=== PATIENT | female | born 1940 ===

== ENCOUNTER 2021-12-02 22:25 | Observation (INO) ==
[2021-12-03] MEDS ORDERED: Melatonin 3 MG TABLET PO PRN (02:23)
[2021-12-03] MEDS ORDERED: Naloxone 0.4 MG/ML INJ IVP PRN (02:23)
[2021-12-03] MEDS ORDERED: *HR* HYDROcodone/Acet 5/325 mg TABLET PO PRN (02:23)
[2021-12-03] MEDS ORDERED: Acetaminophen 325 MG TABLET PO PRN (02:23)
[2021-12-03] MEDS: *HR* OxyCODONE Immed Rel 5 MG TABLET PO PRN ×3 (03:06→19:33)
[2021-12-03 05:14] LABS: INR 1.2; Prothrombin Time 13.1 Seconds (9.4-12.1)
[2021-12-03 05:15] LABS: Basophils % 0.4 %; Eosinophils # 0.1 K/mcL (0.0-0.6); Hemoglobin 11.8 g/dL (11.5-15.4); Immature Granulocytes % 0.2 % (0-4); Lymphocytes # 1.4 K/mcL (0.6-4.6); Lymphocytes % 14.9 %; Mean Corpuscular HGB Conc 32.8 g/dL (31.6-35.5); Mean Corpuscular Hemoglobin 31.9 pg (28.0-33.3); Mean Corpuscular Volume 97.3 fL (83.0-100.0); Mean Platelet Volume 9.3 fL (9.4-12.4); Monocytes # 0.9 K/mcL (0.0-1.3); Monocytes % 9.8 %; Neutrophils # 6.8 K/mcL (1.6-8.9); Platelet Count 204 K/mcL (140-400); Red Cell Distribution Width 14.9 % (11.5-14.5); Segmented Neutrophils % 73.7 %; White Blood Count 9.2 K/mcL (4.3-11.1)
[2021-12-03 05:17] LABS: Activated Partial Thrombo Time 31.9 Seconds (26.0-36.0)
[2021-12-03 05:27] LABS: BUN/Creatinine Ratio 34 (6-26); Blood Urea Nitrogen 24 mg/dL (8-23); Calcium 8.8 mg/dL (8.6-10.3); Carbon Dioxide 27 mEq/L (23-29); Chloride 105 mEq/L (98-107); Glucose 118 mg/dL (70-105); Osmolality,Calculated 289 (280-300); Potassium 4.3 mEq/L (3.5-5.1); Sodium 137 mEq/L (136-145); eGFR For African Americans > 60 (> 60); eGFR For Non-African Americans > 60 (> 60)
[2021-12-03] MEDS ORDERED: ALPRAZolam 0.5 MG TABLET PO PRN (17:04)
[2021-12-03 18:32] VITALS: TEMP 98.2
[2021-12-03] MEDS: Budesonide/Formoterol 160/4.5 1 PUFF INH IH SCH (20:53)
[2021-12-03] MEDS ORDERED: ALPRAZolam 1 MG TABLET PO SCH (21:15)
[2021-12-04] MEDS: Budesonide/Formoterol 160/4.5 1 PUFF INH IH SCH (08:25)
[2021-12-04] MEDS: *HR* OxyCODONE Immed Rel 5 MG TABLET PO PRN ×2 (08:34→17:21)
[2021-12-04 10:33] VITALS: O2SAT 94
[2021-12-04 15:12] LABS: Influenza A PCR Negative (Negative); Influenza B PCR Negative (Negative); Resp. Syncytial Virus PCR Negative (Negative)
[2021-12-04 15:14] LABS: SARS-CoV-2 by PCR (In House) Negative (Negative)
[2021-12-04 17:22] VITALS: BP 159/66; PULSE 84
== END 2021-12-04 18:15 | disposition other institution (70) ==
LOC: 4WAOSI → SUATTDRO 12-03 02:06
PROVIDERS: ADMIT Internal Medicine; ATTEND Internal Medicine